=== PATIENT | male | born 1995 | race Hispanic/Latino ===

== ENCOUNTER 2020-04-27 22:13 | Emergency (ER) | payer MEDICAID ==
[2020-04-27] MEDS ORDERED: HYDROXYZINE HCL 25 MG TABLET ONE (23:11)
[2020-04-27] MEDS ORDERED: METHYLPREDNISOLONE SOD SUCC 40MG/ML 1ML ONE ×2 (23:12→23:17)
== END 2020-04-27 23:27 | disposition home or self-care (01) ==
LOC: EDH 22:13
DX: M94.0 Chondrocostal junction syndrome [Tietze] (principal); F41.9 Anxiety disorder, unspecified; F31.9 Bipolar disorder, unspecified; F90.9 Attention-deficit hyperactivity disorder, unspecified type
CPT/HCPCS: 71045; 93005; 96372; 99283; J2920 ×2

== ENCOUNTER 2020-05-13 17:06 | Emergency (ER) | payer MEDICAID ==
[~2020-05-13 17:06] MED LIST: 0.9% SODIUM CHLORIDE 1000 ML IV BAG IV ONE
[2020-05-13 18:22] LABS: BASOPHILS % (AUTO) 0.3 % (0.0-5.0); EOSINOPHILS % (AUTO) 0.2 % (0.0-8.0); HEMATOCRIT 45.8 % (42-54); LYMPHOCYTES % (AUTO) 7.1 % (21.0-51.0); MEAN CORPUSCULAR HEMOGLOBIN 30.8 pg (27.0-33.0); MEAN CORPUSCULAR HGB CONC 35.6 g/dL (32.0-36.0); MEAN CORPUSCULAR VOLUME 86.6 fL (79-99); MONOCYTES % (AUTO) 9.5 % (3.0-13.0); NEUTROPHILS % (AUTO) 82.6 % (40.0-77.0); PLATELET COUNT (AUTO) 165 K/uL (130-400); RED BLOOD CELL COUNT(AUTO) 5.29 MIL/uL (4.50-6.20); RED CELL DISTRIBUTION WIDTH 11.9 % (11.0-15.5); WHITE BLOOD COUNT (AUTO) 13.2 K/uL (4.8-10.8)
[2020-05-13 18:23] LABS: APPEARANCE,URINE Clear (CLEAR); BILIRUBIN,URINE Negative (NEGATIVE); COLOR,URINE Yellow (YELLOW); GLUCOSE, URINE (UA) Negative (NEGATIVE); KETONES,URINE >=160 mg/dL (NEGATIVE); LEUKOCYTE ESTERASE ,URINE Trace (NEGATIVE); NITRATE,URINE Negative (NEGATIVE); OCCULT BLOOD,URINE Small (NEGATIVE); PH,URINE 8.5 (5.0-8.0); PROTEIN,URINE Negative (NEGATIVE)
[2020-05-13 18:33] LABS: BACTERIA,URINE Few /HPF (None Seen); MUCUS,URINE Few LPF (None Seen); SQUAMOUS EPITHELIAL CELL,UR Few /HPF (0-2)
[2020-05-13 18:34] LABS: POTASSIUM 3.5 mmol/L (3.5-5.1)
[2020-05-13 18:38] LABS: ALBUMIN 4.4 g/dL (3.5-5.0); BILIRUBIN,TOTAL 1.1 mg/dL (0.2-1.0); CREATINE KINASE, TOTAL 40 U/L (21-232); LIPASE 124 U/L (114-286); TOTAL PROTEIN, SERUM 8.2 g/dL (6.0-8.3)
[2020-05-13] MEDS ORDERED: ONDANSETRON HCL 4 MG/2 ML VIAL ONE (19:33)
[2020-05-13] MEDS ORDERED: ACETAMINOPHEN EXTRA STRENGTH 500 MG TABLET ONE (19:33)
== END 2020-05-13 21:36 | disposition home or self-care (01) ==
LOC: EDH 17:06
DX: E86.0 Dehydration (principal); B34.9 Viral infection, unspecified; Z20.822 Contact with and (suspected) exposure to COVID-19; F41.9 Anxiety disorder, unspecified; F31.9 Bipolar disorder, unspecified; F90.9 Attention-deficit hyperactivity disorder, unspecified type; Z87.891 Personal history of nicotine dependence
CPT/HCPCS: 36415; 80053; 81001; 82550; 83690; 85025; 87426; 87804 ×2; 96361; 96374; 99283; J2405; J7030; U0003

== ENCOUNTER 2021-06-05 00:30 | Emergency (ER) | payer MEDICAID ==
[~2021-06-05] VITALS: Ht 167.6 cm; Wt 78.9 kg
[2021-06-05 00:52] VITALS: BP 110/72
[2021-06-05] MEDS ORDERED: KETOROLAC 60 MG VIAL (30MG/ML) IM ONE (01:00)
[2021-06-05] MEDS ORDERED: ORPHENADRINE CITRATE 30 MG/ML ML IM ONE (01:00)
[2021-06-05] MEDS ORDERED: DICL50TA9 PO (02:08)
[2021-06-05] MEDS ORDERED: CYCL10TA16 PO (02:08)
== END 2021-06-05 02:15 | disposition home or self-care (01) ==
LOC: EDH 00:30
DX: S13.9XXA Sprain of joints and ligaments of unspecified parts of neck, initial encounter (principal); M54.12 Radiculopathy, cervical region; F41.9 Anxiety disorder, unspecified; F31.9 Bipolar disorder, unspecified; X58.XXXA Exposure to other specified factors, initial encounter; Y93.89 Activity, other specified; Y92.89 Other specified places as the place of occurrence of the external cause; Y99.8 Other external cause status
CPT/HCPCS: 72040; 82948; 96372 ×2; 99284; J1885; J2360

== ENCOUNTER 2023-02-16 08:34 | Emergency (ER) | payer MEDICAID ==
[~2023-02-16] VITALS: Ht 167.6 cm; Wt 79.4 kg
[~2023-02-16 08:34] MED LIST changes: -0.9% SODIUM CHLORIDE 1000 ML IV BAG IV ONE; +CYCL10TA16 PO; +DICL50TA9 PO
[2023-02-16 09:06] LABS: BASOPHILS # (AUTO) 0.06 K/uL (0.00-0.20); BASOPHILS % (AUTO) 0.8 % (0.0-5.0); EOSINOPHILS # (AUTO) 0.17 K/uL (0.00-0.70); EOSINOPHILS % (AUTO) 2.3 % (0.0-8.0); HEMATOCRIT 46.9 % (42-54); IMMATURE GRANULOCYTE ABSOLUTE 0.03 K/uL (0-1); LYMPHOCYTES # (AUTO) 2.4 K/uL (1.0-4.8); LYMPHOCYTES % (AUTO) 32.9 % (21.0-51.0); MEAN CORPUSCULAR HEMOGLOBIN 30.8 pg (27.0-33.0); MEAN CORPUSCULAR HGB CONC 35.4 g/dL (32.0-36.0); MONOCYTES # (AUTO) 0.6 K/uL (0.1-1.0); MONOCYTES % (AUTO) 7.7 % (3.0-13.0); NEUTROPHILS # (AUTO) 4.1 K/uL (1.8-7.7); NEUTROPHILS % (AUTO) 55.9 % (40.0-77.0); PLATELET COUNT (AUTO) 212 K/uL (130-400); RED BLOOD CELL COUNT(AUTO) 5.39 MIL/uL (4.50-6.20); RED CELL DISTRIBUTION WIDTH 12.4 % (11.0-15.5); WHITE BLOOD COUNT (AUTO) 7.4 K/uL (4.8-10.8)
[2023-02-16 09:15] LABS: APPEARANCE,URINE CLEAR (CLEAR); BILIRUBIN,URINE NEGATIVE (NEGATIVE); COLOR,URINE COLORLESS (YELLOW); GLUCOSE, URINE (UA) NEGATIVE (NEGATIVE); KETONES,URINE NEGATIVE (NEGATIVE); LEUKOCYTE ESTERASE ,URINE NEGATIVE Leu/uL (NEGATIVE); NITRATE,URINE NEGATIVE (NEGATIVE); OCCULT BLOOD,URINE SMALL (NEGATIVE); PROTEIN,URINE NEGATIVE (NEGATIVE); UROBILINOGEN,URINE 0.2 mg/dL (0.2-1.0)
[2023-02-16 09:18] LABS: SARS-CoV-2, RNA, NAAT NEGATIVE SARS CoV-2 (NEGATIVE)
[2023-02-16 09:21] LABS: INFLUENZA TYPE A Negative For Type A (NEGATIVE); INFLUENZA TYPE B Negative For Type B (NEGATIVE)
[2023-02-16 09:27] LABS: ADD UA MICROSCOPIC YES; AMPHET/METH SCREEN,URINE NEGATIVE (NEGATIVE); BARBITURATE SCREEN, URINE NEGATIVE (NEGATIVE); BENZODIAZEPINES SCREEN,URINE NEGATIVE (NEGATIVE); CANNABINOID SCREEN,URINE POSITIVE (NEGATIVE); COCAINE SCREEN,URINE NEGATIVE (NEGATIVE); OPIATE SCREEN,URINE NEGATIVE (NEGATIVE); PHENCYCLIDINE SCREEN,URINE NEGATIVE (NEGATIVE)
[2023-02-16 09:30] LABS: ALBUMIN 4.2 g/dL (3.5-5.0); BILIRUBIN,TOTAL 0.7 mg/dL (0.2-1.0); CREATININE 0.9 mg/dL (0.5-1.5); POTASSIUM 3.5 mmol/L (3.5-5.1); TOTAL PROTEIN, SERUM 7.6 g/dL (6.0-8.3)
[2023-02-16] MEDS ORDERED: IBUP-2070 PO (11:18)
[2023-02-16 11:51] VITALS: BP 121/76; PULSE 60; RESP 16; O2SAT 100
== END 2023-02-16 11:51 | disposition home or self-care (01) ==
LOC: EDH 08:34
DX: G43.909 Migraine, unspecified, not intractable, without status migrainosus (principal); F12.90 Cannabis use, unspecified, uncomplicated; R10.9 Unspecified abdominal pain; F41.9 Anxiety disorder, unspecified; F31.9 Bipolar disorder, unspecified; Z20.822 Contact with and (suspected) exposure to COVID-19
CPT/HCPCS: 99283; 87635; 80053; 80305; 83690; 85025; 87804 ×2; 81001; 36415; C9803

== ENCOUNTER 2024-04-10 13:14 | Emergency (ER) | payer MEDICAID ==
[~2024-04-10] VITALS: Ht 167.6 cm; Wt 79.4 kg
[~2024-04-10 13:14] MED LIST changes: +IBUP-2070 PO
[2024-04-10] MEDS ORDERED: IBUP-2077 PO (14:55)
[2024-04-10] MEDS ORDERED: AMOX-426 PO (14:55)
--- NOTE | 2024-04-10 14:59 | ERN ---
General Chief Complaint: Other Problems Stated Complaint: LEFT JAW PAIN History of Present Illness Initial Comments Mr. Vines is a 28-year-old male who came to the ER due to complaints of sensation of locked jaw since 2 days, started when he was eating. He denies history of fever or recent infections or trauma. He complains of mild pain in his left ear and around the parotid gland region. Denies difficulty with swallowing, is able to open and close his mouth without any displacement of TMJ. Allergies: Coded Allergies: No Known Drug Allergies (Unverified Allergy, Unknown, 06/05/21) Home Meds Active Scripts Amoxicillin/Potassium Clav (Augmentin 500-125 Tablet) 500 Mg-125 Mg Tablet, 1 TAB PO BID for 7 Days, #14 TAB 0 Refills Prov:AUDREY WEINBERG MD 04/10/24 Ibuprofen (Ibuprofen 800 mg Tab) 800 Mg Tab, 800 MG PO Q6H PRN for PAIN for 5 Days, #20 TAB Prov:AUDREY WEINBERG MD 04/10/24 Ibuprofen (Ibuprofen) 600 Mg Tablet, 600 MG PO Q6H PRN for HEADACHE, #30 TAB Prov:LISANDRA ESPINOSA MD 02/16/23 Cyclobenzaprine HCl (Flexeril) 10 Mg Tab, 10 MG PO TIDP PRN for MUSCLE SPASMS, #15 TAB 0 Refills Prov:GREY HANDLEY MD 06/05/21 Diclofenac Sodium (Diclofenac Sodium) 50 Mg Tablet.dr, 50 MG PO TIDP PRN for SEVERE PAIN (7-10), #20 TAB 0 Refills Prov:GREY HANDLEY MD 06/05/21 Past Medical History Past Medical History: Asthma Past Surgical History: None Social History Social History: Other ROS Dictation ROS Constitutional: No appetite loss, No fevers, chills , No night sweats, No weakness, fatigue Eye: No vision change, No redness, pain or discharge ENT: No hearing loss, left jaw and ear pain, No nose bleeds, No sore throat, Neck: No swelling. pain or stiffness Respiratory: No cough, shortness of breath, wheezing Cardiovascular: No chest pain,, palpitations, dyspnea, No edema Gastrointestinal: No abdominal pain, No nausea, vomiting, No diarrhea, constipation Genitourinary: No painful urination, No blood in urine, No urinary incontinence, No frequency or urgency Musculoskeletal: No joint pain, muscle pain, swelling or stiffness Neurological: No numbness, tingling, No weakness, tremors or seizures Physical Exam Physical Exam Dictation General: Alert & Oriented, No acute distress. EENT: No conjunctival redness or discharge noted Tympanic membranes are clear, Normal hearing, Oral mucosa is moist, No pharyngeal erythema, No nasal discharge, No oral lesions. Neck: Non-tender, No jugular vein distention, No lymphadenopathy, No thyromegaly, Supple. Respiratory: Lungs are clear to auscultation, Respirations are non-labored, Breath sounds are equal, No chest wall tenderness, _. Cardiovascular: Normal rate, Normal rhythm, No murmur, Good pulses equal in all extremities, Normal peripheral perfusion, No edema. Gastrointestinal: Soft, Non-tender, Non-distended, Normal bowel sounds, No organomegaly, _. Musculoskeletal: Normal range of motion, Normal strength, No tenderness, No swelling, No deformity, Normal gait. Integumentary: Warm, Dry, [place], Intact, No pallor, No rash. Neurologic: Alert, Oriented x4, Normal sensory, No focal defects Psychiatric: Cooperative, Appropriate mood & affect, Normal judgement, Non- suicidal. MDM The differential diagnosis entertained at this time includes: TMJ displacement, dental abscess, parotid gland infection A full comprehensive workup will be performed to identify the underlying problem. The patient will be monitored closely throughout the emergency department stay. The disposition will depend on the workup results and frequent re-evaluations MDM: Rationale: Tests considered and ordered secondary to shared decision making include: CBC, CMP, Urinalysis,, ECG and radiology Previous outside records reviewed: Old ER visits. Risk of complication and/or morbidity or mortality of patient management: None Medications-Per medication reconciliation Need for hospitalization: Patient does meet criteria for hospitalization. Need for emergency major/minor surgery: No There are no social concerns with this patient. Prescription drug management Prescriptions will include symptomatic care Patient's prior external medical records from other ER visits were reviewed by me as indicated. Prior testing and results from previous visits were reviewed. Prior tests were taken into account with medical decision making and resource utilization, independent historian/historians were used to obtain complete medical history. I independently interpreted the test that were performed, results were reviewed by me and considered findings on radiology if ordered. Medical management and examination interpretation discussions were had by me with other qualified healthcare professionals as indicated for the patient's care. ED Course Orders Procedure Category Date Status Time Ceftriaxone 1g Vial PHA 04/10/24 Complete (Rocephine 1g Inj) 15:00 Ketorolac PHA 04/10/24 In Process Tromethamine 15mg/Ml 15:00 Ceftriaxone 1g Vial PHA 04/10/24 Logged (Rocephine 1g Inj) 15:30 Current Medications Medications (Trade) Dose Ordered Sig/Ed Route PRN Reason Start Time Stop Time Status Last Admin Dose Admin Ceftriaxone Sodium (ROCEphine 1G INJ) 1 gm ONCE IM 04/10/24 15:30 04/20/24 15:29 UNV Ceftriaxone Sodium (ROCEphine 1G INJ) 1 gm ONCE IVPB 04/10/24 15:00 04/10/24 15:26 DC Ketorolac Tromethamine (toRADol) 15 mg ONCE IV 04/10/24 15:00 04/10/24 20:00 Vital Signs Date Time Temp Pulse Resp B/P (MAP) Pulse Ox O2 Delivery O2 Flow Rate FiO2 04/10/24 15: 98.8 84 18 128/74 99 Room Air* 0 21 04/10/24 13:23 97.9 83 18 130/92 98 Room Air 0 DX & DISP Disposition: Discharge Departure Impression: Primary Impression: TMJ locking Critical Time: 30 minutes Condition: Stable Scripts Amoxicillin/Potassium Clav (Augmentin 500-125 Tablet) 500 Mg-125 Mg Tablet 1 TAB PO BID for 7 Days, #14 TAB 0 Refills Prov: AUDREY WEINBERG MD 04/10/24 Ibuprofen (Ibuprofen 800 mg Tab) 800 Mg Tab 800 MG PO Q6H PRN for PAIN for 5 Days, #20 TAB Prov: AUDREY WEINBERG MD 04/10/24 Additional Instructions: Soft or liquid diet to reduce drain. Moist heat, massage, and passive stretching exercises. The patient is now being discharged to home and should follow up with the primary care physician or the specialist as directed by the ER staff. Follow-up with primary care provider in 1 to 2 days. Take medications as directed here in the emergency room. Okay to continue home medications unless otherwise discussed during your visit in the emergency room today. Return to your nearest emergency room if symptoms worsen or if there is no improvement. Call 911 if you need immediate assistance. Take Tylenol or Motrin [id number] as needed and if no contraindications are present. Increase oral hydration. Referrals: LUIG[facility] CALLOWAY MANAGING DIRECTOR (PCP) ATTESTATION BY PHYSICIAN I have seen and examined the patient. I reviewed the documentation, medical decision making, and treatment plan as noted by the resident provider above. I agree with the findings and plan of care. Scott Cerrato MD, NIHITHA MD Apr 10, 2024 14:59
[2024-04-10] MEDS ORDERED: cefTRIAXone 1G VIAL IVPB SCH (15:00)
[2024-04-10 15:25] VITALS: BP 128/74; PULSE 84; RESP 18; TEMP 98.7; O2SAT 99
[2024-04-10] MEDS: cefTRIAXone 1G VIAL IM ONE (16:17)
[2024-04-10] MEDS: ketOROlac 15MG/ML VIAL (15MG/ML) IV SCH (16:17)
== END 2024-04-10 16:27 | disposition home or self-care (01) ==
LOC: EDH 13:14
DX: M26.602 Left temporomandibular joint disorder, unspecified (principal); J45.909 Unspecified asthma, uncomplicated
CPT/HCPCS: 99284; 96374; 96372; J1885; J0696